=== PATIENT | male | born 1970 | race Caucasian/White ===

== ENCOUNTER 2019-04-04 12:28 | Day surgery (SDC) | payer OTHER ==
[2019-04-01 13:57] VITALS: BMI 32.3
[~2019-04-04 12:28] MED LIST: PROPOFOL 200 MG/20 ML VIAL ONE
--- NOTE | 2019-04-04 15:43 | MRI ---
MRI Lumbar Spine Noncontrast: HISTORY: Low back pain with burning and right thigh and bilateral lower extremity weakness. History of prior l ow back surgery in 2015. COMPARISON: None FINDINGS: Few subcentimeter increased T2-weighted signal intensity foci are seen in the midportion right kidney which are difficult to characterize on this exam but statistically likely represent renal cysts. Secondary to narrowing of the central spinal canal, the exact termination of the conus medullaris is difficult to determine but probably terminates at the L1-2 level. There are postsurgical changes of the lumbar spine with evidence of posterior fusion at the L4-5 leve l with metallic susceptibility artifact likely due to bipedicular screws and posterior rods with intradiscal prosthesis. There is generalized narrowing of the central spinal canal secondary to congenitally short pedicles. L1-2: There is loss of intervertebral disc height with endplate degenerative changes at this level. T here is a broad-based disc osteophyte complex and mild facet degenerative changes. This in combination with the congenitally short pedicles results in moderate narrowing of the central spinal canal at this level. Minimal bilateral neural foraminal narrowing is noted. L2-3: There is a mild disc osteophyte complex with facet hypertrophic changes. There is mild to moder ate central canal narrowing. Right neural foramen is patent, but there is mild to moderate left-sided neural foraminal narrowing. L3-4: Mild disc osteophyte complex is present with facet hypertrophic atrophic changes. Ligamentous t hickening is present. Moderate narrowing of the central spinal canal is present at this level with mild to moderate bilateral neural foraminal narrowing. L4-5: Evidence of posterior fusion as described above. There is minimal disc osteophyte complex with mild generalized narrowing of the central spinal canal and mild bilateral neural foraminal narrowing. L5-S1: Facet hypertrophic changes are present. There is a minimal disc osteophyte complex. There is s light effacement of the ventral aspect of the thecal sac without significant central canal narrowing. Mild bilateral neural foraminal narrowing is present. IMPRESSION: 1. Postoperative and degenerative changes in the lumbar spine. 2. Generalized narrowing of the central spinal canal diffusely secondary to congenitally short pedicl es. Associated disc osteophyte complex at the L1-2 level results in moderate central canal narrowing. 3. Varying degrees of mild and [id number] neural foraminal narrowing as described above at mult iple levels.
== END 2019-04-04 16:05 | disposition home or self-care (01) ==
LOC: SDC/OP 12:28
PROVIDERS: ATTEND Orthopaedic Surgery
DX: M54.5 Low back pain (principal); I10 Essential (primary) hypertension; E78.5 Hyperlipidemia, unspecified; F41.9 Anxiety disorder, unspecified; Z79.899 Other long term (current) drug therapy
CPT/HCPCS: 72148; J2704